=== PATIENT | female | born 1960 | race African-American/Black ===

== ENCOUNTER 2021-02-07 07:54 | Emergency (ER) | payer BC, OTHER ==
[~2021-02-07] VITALS: Ht 167.6 cm; Wt 86.2 kg
[~2021-02-07 07:54] MED LIST: HYDR10SO2; PROMETHAZINE W/CODEI; PROVENTIL INH
[2021-02-07 08:27] VITALS: BP 144/86
== END 2021-02-07 09:52 | disposition home or self-care (01) ==
LOC: ER 07:54
DX: S63.91XA Sprain of unspecified part of right wrist and hand, initial encounter (principal); S76.011A Strain of muscle, fascia and tendon of right hip, initial encounter; S39.012A Strain of muscle, fascia and tendon of lower back, initial encounter; J45.909 Unspecified asthma, uncomplicated; W22.8XXA Striking against or struck by other objects, initial encounter; Y93.89 Activity, other specified; Y92.89 Other specified places as the place of occurrence of the external cause; Y99.8 Other external cause status
CPT/HCPCS: 73130; 73502; 93005